=== PATIENT | male | born 1960 | race Caucasian/White ===

== ENCOUNTER 2023-06-28 08:40 | Emergency (ER) | payer MEDICARE, SELFPAY ==
[2023-06-28 08:49] VITALS: BP 151/94; PULSE 105; RESP 20; TEMP 37.1; O2SAT 94; BMI 36.3
--- NOTE | 2023-06-28 09:38 | ED_ITS ---
HPI - General Adult General Time Seen by Provider: 09:38 Date Seen: 06/28/23 Chief complaint: Extremity Pain/Injury, Lower Stated complaint: DVT Time Seen by Provider: 06/28/23 09:38 Source: patient and RN notes reviewed Mode of arrival: ambulatory Limitations: no limitations History of Present Illness HPI narrative: Bonny is a 63-year-old male coming in to the ER with left thigh swelling, pain, palpable lumps, feels the pain into his left groin. He noted this about 2 days ago. Two days ago he also noted an episode where he was feeling short of breath. This has resolved. He has no history of lung disease, is a smoker. No prior history of thromboembolic disease that he is aware of. Denies any illness with this, no prolonged immobilization. He does have underlying psoriasis. He does take a daily baby aspirin. Related Data Home Medications Medication Instructions Recorded Confirmed aspirin 81 mg tablet,delayed 81 mg PO DAILY 06/28/23 06/28/23 release (Adult Aspirin Regimen) levothyroxine 200 mcg tablet 200 mcg PO DAILY 06/28/23 06/28/23 levothyroxine 25 mcg tablet 25 mcg PO DAILY 06/28/23 06/28/23 lisinopril 10 mg tablet 10 mg PO DAILY 06/28/23 06/28/23 Previous Rx's Medication Instructions Recorded cephalexin 500 mg tablet 500 mg PO TID #21 tabs 06/28/23 Allergies Allergy/AdvReac Type Severity Reaction Status Date / Time No Known Drug Allergies Allergy Verified 06/28/23 08:53 Review of Systems Status of ROS: Reports: 6 or more systems reviewed and unremarkable except as noted in History and below Exam Const: Vital Signs, click to edit/add: Vital Signs - 24 hr 06/28/23 08:49 06/28/23 09:44 Temperature 98.8 F Pulse Rate [Right Pulse Oximeter] 105 H Respiratory Rate 20 Blood Pressure [Le ft Upper Arm] 151/94 H Pulse Oximetry 94 96 Oxygen Delivery Me thod Room Air Bonny is a 63-year-old male that is alert, interactive, no apparent distress. Sclera clear, face atraumatic, able to speak in complete sentences. Neck is supple, no cervical adenopathy, no thyromegaly masses or nodules, no no jugular venous distension. Lungs are clear, good air entry, no wheezing or crackles, no tachypnea. When I auscultate, heart rate was not fast but it was more elevated per his vitals on arrival. He sounds regular now, not fast, no murmur, normal S1 and S2, no S3 or S4. Abdomen is soft. Along his left medial side of his thigh there is erythema, warmth, underlying cord in the linear fashion that certainly looks to be consistent with a superficial DVT. His left calf and leg in of itself is not swollen but he does have calf tenderness. He states the whole leg actually aches. There is normal warmth and coloration outside of the erythematous medial thigh. Documenting provider has reviewed patient's vital signs: yes Course Course ED Course: Will place him on pulse oximetry, established an IV and get baseline labs including troponin. Given he had an episode of shortness of breath at the onset of this, do think we need to consider pulmonary embolus. He most certainly has a superficial thrombophlebitis but with the area of distribution, have concerned that this could have extended to the deep system. Discussed imaging with venous ultrasound of his left lower extremity as well as doing a chest CT PE protocol. Patient is in agreement with obtaining both of these which I do think is reasonable given his history. Reevaluation(s) Time of Reevaluation #1: 12:15 Reevaluation #1: Have reviewed with patient that the ultrasound is showing no evidence of any blood clot or superficial thrombophlebitis. Likewise his chest CT showing no pulmonary emboli. Reviewed with him that I do think that this is likely cellulitis or soft tissue infection. On re-evaluation, he does have some psoriatic lesions on the outer left lower calf, these have been scratched. These could be a portal of the source of infection with cellulitis. There is no overt cellulitic changes around this area at this time. The left medial thigh a could be more lymphangitic streaking presentation. He is stating he wants to go home, has been here for 4 hours. At the time I am talking to him, he has just been here over 3 hours. He and I reviewed that it can take time in the ER, his radiology reports were just recently both back. We are doing our best to be as fast as possible but there are limitations in the ED. he is not aware of any history of MRSA. I did review with him that I would recommend initial dose of IV antibiotics, he wanted to know what kind. I reviewed with him likely Ancef and then oral Keflex. He stated there antibiotics that he did not like. When asked him to expand on this, he did not want talk further about it. He states he just wants to go home and get out of here. I did offer to give him the Keflex from [facility] but he declined. Thus, we will send into his pharmacy to try to have him ready for discharge as soon as his IV antibiotics are in. Vital Signs Vital signs: Initial Vital Signs Temperature 98.8 F 06/28/23 08:49 Temperature Source Temporal Artery Scan 06/28/23 08:49 Pulse Rate 105 H 06/28/23 08:49 Respiratory Rate 20 06/28/23 08:49 Blood Pressure 151/94 H 06/28/23 08:49 Blood Pressure Mean 113 H 06/28/23 08:49 Blood Pressure Position Sitting 06/28/23 08:49 Pulse Oximetry 94 06/28/23 08:49 Oxygen Delivery Method Room Air 06/28/23 08:49 Vital Signs Temperature 98.8 F 06/28/23 08:49 Pulse Rate 105 H 06/28/23 08:49 Respiratory Rate 20 06/28/23 08:49 Blood Pressure 151/94 H 06/28/23 08:49 Pulse Oximetry 94 06/28/23 08:49 Oxygen Delivery Method Room Air 06/28/23 08:49 Temperature 98.4 F 06/28/23 13:30 Pulse Rate 90 06/28/23 13:30 Respiratory Rate 20 06/28/23 13:30 Blood Pressure 154/78 H 06/28/23 13:30 Pulse Oximetry 94 06/28/23 13:30 Oxygen Delivery Method Room Air 06/28/23 13:30 Medications Administered Medications: Discontinued Medications Generic Name Dose Route Start Last Admin Trade Name Freq PRN Reason Stop Dose Admin Cefazolin Sodium 2 gm/ Sodium 100 mls @ 200 mls/hr 06/28/23 12:25 06/28/23 13:18 Chloride IVPB 06/28/23 12:54 Infused ONCE ONE Infusion Medical Decision Making Lab Data Labs: Lab Results 06/28/23 Range/Units 10:00 WBC 11.54 H (4.50-11.00) K/uL RBC 5.17 (4.30-5.90) m/uL Hgb 15.8 (13.5-17.5) gm/dL Hct 48.0 (37.0-53.0) % MCV 93 (80-100) fL MCH 31 (26-34) pg MCHC 33 (32-36) gm/dL RDW Coeff of Cherri 12.9 (11.5-15.5) % Plt Count 345 (140-440) K/uL Neut % (Auto) 64.9 (42.0-72.0) % Lymph % (Auto) 23.8 (20-44) % Chase % (Auto) 8.4 (0.0-11.0) % Eos % (Auto) 1.6 (0.0-7.0) % Baso % (Auto) 0.3 (0.0-3.0) % Neut # (Auto) 7.50 H (1.7-7.0) K/uL Lymph # (Auto) 2.70 (0.90-2.90) K/uL Chase # (Auto) 1.00 H (0.00-0.90) K/UL Eos # (Auto) 0.20 (0.00-0.50) K/uL Baso # (Auto) 0.00 (0.00-0.30) K/uL Abs Immat Gran (auto) 0.10 (0.00-0.30) K/uL Imm/Tot Granulo (auto) 1.0 % D-Dimer Quant (PE/DVT) 0.69 H (0.00-0.50) ug/ml VBG pH 7.393 (7.32-7.43) VBG pCO2 49 (40-50) mmHG VBG pO2 42.2 (25-47) mmHG VBG HCO3 30 H (21-28) mmol/L Sodium 138 (135-149) mmol/L Potassium 4.4 (3.6-5.1) mmol/L Chloride 102 (96-114) mmol/L Carbon Dioxide 28 (20-32) mmol/L Anion Gap 8 (7-15) mEq/L BUN 11 (7-30) mg/dL Creatinine 0.8 (0.5-1.5) mg/dL Estimated Creat Clear 79.48 Estimated GFR 99 ml/min Glucose 102 (60-115) mg/dL Calcium 9.5 (8.4-10.6) mg/dL Total Bilirubin 1.2 (0.1-1.5) mg/dL AST 47 H (12-35) U/L ALT 53 H (4-50) U/L Alkaline Phosphatase 79 (40-150) U/L Troponin I < 0.01 L (0.01-0.04) ng/mL NT-Pro-B Natriuret Pep 43 pg/mL Total Protein 8.3 (6.0-8.3) g/dL Albumin 4.5 (3.3-5.0) g/dL Imaging Data CT scan - chest: Attestation: I have reviewed the pertinent imaging results. Radiologist's impression: Patient: BONNY MALIN Facility:?[facility] Patient ID:?[id number] Site Patient ID:?[id number] Site :?[id number] Study:?CT Chest Angio w/ 95cc isovue-370 PE Protocol-06/28/2023 10:50:44 AM Ordering Physician:Jeniffer Lovett Final Report: Indication: Tachycardia, shortness of breath Technique: Volumetric multidetector CT images of the chest were obtained after the administration of IV contrast. 95 cc Isovue 370 low osmolar intravenous contrast Comparison: None available. Findings: The thoracic inlet and thyroid gland are unremarkable. The thoracic aorta is nonaneurysmal. There is no central filling defect to suggest pulmonary embolism. There is no mediastinal, hilar or axillary adenopathy. There is mild to moderate central bronchial thickening with minimal mucoid impaction of the lower lobe bronchi. There is mild paraseptal emphysematous changes of the upper lobes with minimal dependent basilar atelectasis and parenchymal scar. There is no dense consolidation, effusion or pneumothorax. There is no evidence of pulmonary mass or suspicious pulmonary nodule. The partially visualized upper abdomen demonstrates moderate hepatomegaly and hepatic steatosis. There is no focal abnormality. The thoracic vertebral body heights are grossly maintained with minimal endplate Schmorl`s defects. There is no significant spondylolisthesis or displaced fracture. Impression: Mild central bronchial thickening with minimal mucoid impaction of the lower lobe bronchi. No dense consolidation. No evidence of pulmonary embolus. Please note that all CT scans at this facility use dose modulation, iterative reconstruction, and/or weight-based dosing when appropriate to reduce radiation dose to as low as reasonably achievable. Dictated by Randy Madison MD @ 06/28/2023 11:39:32 AM (Electronic Signature) Venous US: Attestation: I have reviewed the pertinent imaging results. Radiologist's impression: Patient: BONNY MALIN Facility:?[facility] Patient ID:?[id number] Site Patient ID:?[id number]. Site :?[id number] Study:?US Extremity Left LEV-06/28/2023 10:50:00 AM Ordering Physician:?Gemma Lovett Final Report: INDICATION: Leg pain and swelling TECHNIQUE: Ultrasound venous duplex lower left extremity. Compression venous exam was performed using hernandez-scale, color Doppler, and spectral Doppler analysis. COMPARISON: None. FINDINGS: Sonographic imaging demonstrates the left common femoral, deep femoral, superficial femoral, popliteal, posterior tibial and greater saphenous and the contralateral right common femoral veins to be fully compressible with normal color Doppler blood flow. IMPRESSION: Normal left lower extremity venous ultrasound, no sign of deep venous thrombosis. Dictated by Randy Madison MD @ 06/28/2023 11:27:48 AM (Electronic Signature) ECG Data Attestation: I personally reviewed and interpreted this ECG as follows: (Normal sinus rhythm, 99 beats per minute. No ischemic change noted.) Discharge Plan Discharge Clinical Impression: Cellulitis Patient Disposition: Home, Self-Care Condition: Stable Instructions: Cellulitis (ED) Additional Instructions: Start oral antibiotic this evening and take as prescribed. Would recommend warm compresses to this left leg. Stay on daily baby aspirin as you have been. If your developing fevers, have increasing area of redness, feel like you are worsening, do recommend re-evaluation. Find use Tylenol and ibuprofen as needed for discomfort, follow bottle directions for dosing. Request that you get scheduled within the next week for recheck in clinic with your primary care provider. Activity Level: Activity as Tolerated Prescriptions: New cephalexin 500 mg tablet 500 mg PO TID Qty: 21 0RF No Action levothyroxine 25 mcg tablet 25 mcg PO DAILY lisinopril 10 mg tablet 10 mg PO DAILY levothyroxine 200 mcg tablet 200 mcg PO DAILY aspirin [Adult Aspirin Regimen] 81 mg tablet,delayed release (DR/EC) 81 mg PO DAILY Follow Up/Referrals: Provider,Not a Local [Primary Care Provider] - Stand Alone Forms: [employer] Info Instructions
[2023-06-28 09:44] VITALS: O2SAT 96
--- NOTE | 2023-06-28 09:44 | CRLHL7_ITS ---
For Patients: As a result of the Century Cures Act, medical imaging exams and procedure reports are released immediately into your electronic medical record. You may view this report before your referring provider. If you have questions, please contact your health care provider. INDICATION: Leg pain and swelling TECHNIQUE: Ultrasound venous duplex lower left extremity. Compression venous exam was performed using hernandez-scale, color Doppler, and spectral Doppler analysis. COMPARISON: None. FINDINGS: Sonographic imaging demonstrates the left common femoral, deep femoral, superficial femoral, popliteal, posterior tibial and greater saphenous and the contralateral right common femoral veins to be fully compressible with normal color Doppler blood flow. IMPRESSION: Normal left lower extremity venous ultrasound, no sign of deep venous thrombosis. Dictated by Randy Madison MD @ 06/28/2023 11:27:48 AM (Electronically Signed)
--- NOTE | 2023-06-28 09:44 | CRLHL7_ITS ---
For Patients: As a result of the Century Cures Act, medical imaging exams and procedure reports are released immediately into your electronic medical record. You may view this report before your referring provider. If you have questions, please contact your health care provider. Indication: Tachycardia, shortness of breath Technique: Volumetric multidetector CT images of the chest were obtained after the administration of IV contrast. 95 cc Isovue 370 low osmolar intravenous contrast Comparison: None available. Findings: The thoracic inlet and thyroid gland are unremarkable. The thoracic aorta is nonaneurysmal. There is no central filling defect to suggest pulmonary embolism. There is no mediastinal, hilar or axillary adenopathy. There is mild to moderate central bronchial thickening with minimal mucoid impaction of the lower lobe bronchi. There is mild paraseptal emphysematous changes of the upper lobes with minimal dependent basilar atelectasis and parenchymal scar. There is no dense consolidation, effusion or pneumothorax. There is no evidence of pulmonary mass or suspicious pulmonary nodule. The partially visualized upper abdomen demonstrates moderate hepatomegaly and hepatic steatosis. There is no focal abnormality. The thoracic vertebral body heights are grossly maintained with minimal endplate Schmorl`s defects. There is no significant spondylolisthesis or displaced fracture. Impression: Mild central bronchial thickening with minimal mucoid impaction of the lower lobe bronchi. No dense consolidation. No evidence of pulmonary embolus. Please note that all CT scans at this facility use dose modulation, iterative reconstruction, and/or weight-based dosing when appropriate to reduce radiation dose to as low as reasonably achievable. Dictated by Randy Madison MD @ 06/28/2023 11:39:32 AM (Electronically Signed)
[2023-06-28 10:03] LABS: HCO3 VBG 30 mmol/L (21-28); PCO2 VBG 49 mmHG (40-50); PO2 VBG 42.2 mmHG (25-47); pH VBG 7.393 (7.32-7.43)
[2023-06-28 10:12] LABS: Basophils Percent Auto 0.3 % (0.0-3.0); Eosinophils Percent Auto 1.6 % (0.0-7.0); Hemoglobin* 15.8 gm/dL (13.5-17.5); Lymphocytes Percent Auto 23.8 % (20-44); Mean Corpuscular HGB Conc 33 gm/dL (32-36); Mean Corpuscular Hemoglobin 31 pg (26-34); Mean Corpuscular Volume 93 fL (80-100); Monocytes Percent Auto 8.4 % (0.0-11.0); Neutrophils Percent Auto 64.9 % (42.0-72.0); Platelet Count* 345 K/uL (140-440); RDW Coefficient of Variation % 12.9 % (11.5-15.5); Red Blood Count 5.17 m/uL (4.30-5.90); White Blood Count* 11.54 K/uL (4.50-11.00)
[2023-06-28 10:25] LABS: Albumin* 4.5 g/dL (3.3-5.0); Chloride* 102 mmol/L (96-114); Sodium* 138 mmol/L (135-149)
[2023-06-28 10:26] LABS: Potassium* 4.4 mmol/L (3.6-5.1)
[2023-06-28 10:28] LABS: Alanine Aminotransferase* 53 U/L (4-50); Alkaline Phosphatase* 79 U/L (40-150); Anion Gap 8 mEq/L (7-15); Aspartate Amino Transferase* 47 U/L (12-35); Bilirubin Total* 1.2 mg/dL (0.1-1.5); Blood Urea Nitrogen* 11 mg/dL (7-30); Carbon Dioxide* 28 mmol/L (20-32); Creatinine* 0.8 mg/dL (0.5-1.5); D Dimer Quantitative* 0.69 ug/ml (0.00-0.50); Est. Creatinine Clearance* 79.48; Estimated Glomerular Filt Rate 99 ml/min; Glucose* 102 mg/dL (60-115); Total Protein* 8.3 g/dL (6.0-8.3)
[2023-06-28 10:29] LABS: Calcium* 9.5 mg/dL (8.4-10.6)
[2023-06-28 10:37] LABS: Slide Review Reflex No
[2023-06-28 10:38] LABS: NT Pro B Type NatriureticPept* 43 pg/mL
[2023-06-28 10:41] LABS: Troponin I* < 0.01 ng/mL (0.01-0.04)
[2023-06-28] MEDS: CEFAZOLIN 2 GM in 0.9 % SODIUM CHLORIDE Mini-bag 100 ML IVPB (12:46)
[2023-06-28 13:30] VITALS: BP 154/78; PULSE 90; RESP 20; TEMP 36.9; O2SAT 94
== END 2023-06-28 13:30 | disposition home or self-care (01) ==
PROVIDERS: Emergency Provider Family Medicine
DX: L03.116 Cellulitis of left lower limb (principal)
CPT/HCPCS: 36415; 71275; 80053; 82803; 83880; 84484; 85025; 85379; 93005; 93971; 94761; 96365; 96375; 99284; 99285; J0690; Q9967